=== PATIENT | female | born 1980 | race Hispanic/Latino ===

== ENCOUNTER 2019-12-25 09:23 | Day surgery (SDC) | payer SELFPAY ==
[~2019-12-25] VITALS: Ht 152.4 cm; Wt 84.8 kg
[~2019-12-25 09:23] MED LIST: ANUSOL-HC25 MG RE; DENIES CURRENT MED; FERR SULFATE325 MG PO; ISIBLOOM PO; METAMUCIL FIBE51.7 % PO; MIRALAX3350 N1 PO
[2019-12-25 12:02] VITALS: BP 137/76
== END 2019-12-25 12:13 | disposition home or self-care (01) | DRG 392 ==
LOC: ENDO 09:23 → ORM 11:55 → ENDO 11:55
PROVIDERS: ATTEND Surgery
PROC: 0DBE8ZX Excision of Large Intestine, Via Natural or Artificial Opening Endoscopic, Diagnostic (ICD-10-PCS; principal; 2019-12-25)
DX: K59.00 Constipation, unspecified (principal); K64.8 Other hemorrhoids; Z11.59 Encounter for screening for other viral diseases